=== PATIENT | male | born 1965 | race Caucasian/White ===

== ENCOUNTER 2022-06-02 07:42 | Emergency (ER) | payer BC ==
[~2022-06-02] VITALS: Ht 175.3 cm; Wt 90.0 kg
[~2022-06-02 07:42] MED LIST: HYOSCYAMINE0.125 M2 OR; LEVAQUIN750 MG OR; VICODIN ES1 TAB OR
[2022-06-02 08:08] VITALS: BP 139/91
[2022-06-02 08:15] VITALS: BP 146/90
[2022-06-02] MEDS ORDERED: BACTRIM DS1 TAB PO (08:28)
[2022-06-02 08:30] VITALS: BP 132/90
[2022-06-02 08:46] VITALS: BP 141/93
[2022-06-02 09:00] VITALS: BP 137/92
== END 2022-06-02 09:10 | disposition home or self-care (01) | DRG 603 ==
LOC: ED 07:42
DX: L02.211 Cutaneous abscess of abdominal wall (principal)